=== PATIENT | male | born 1955 | race Caucasian/White ===

== ENCOUNTER 2017-01-03 14:04 | Emergency (ER) | payer MEDICARE | END 2017-01-03 18:54 | disposition home or self-care (01) | LOC: ER 14:04 | DX: R51 Headache (principal); G89.29 Other chronic pain; M79.601 Pain in right arm; Z79.01 Long term (current) use of anticoagulants; Z79.899 Other long term (current) drug therapy; Z86.73 Personal history of transient ischemic attack (TIA), and cerebral infarction without residual deficits | CPT/HCPCS: 36415; 96372; J2270; J2550 ==